=== PATIENT | male | born 1940 | race Caucasian/White ===

== ENCOUNTER 2017-09-05 19:26 | Emergency (ER) | payer OTHER ==
[~2017-09-05] VITALS: Ht 165.1 cm; Wt 74.0 kg
[~2017-09-05 19:26] MED LIST: ASPI81TA3 PO; BACTDS PO; BENA20TA48 PO; CEPH-443 PO; COLC0.6T6 PO; FAMO-95 PO; HYDR-3498 PO; IBUP400T22 PO; LANT3I SC; METF1000 PO; NOVO3I SC
[2017-09-06 01:31] VITALS: Ht 165.1 cm; Wt 74.0 kg
--- NOTE | 2017-09-07 12:56 | ERD ---
ER Documentation Chief Complaint Chief Complaint sent by PMD for elevated K, no CP or SOB HPI A recorder helper seismograph was used. This is a 77-year-old male with a history of diabetes, no renal issues who presents because his clinic called him about an elevated potassium level. The patient has no complaints. No fevers, chills, chest pain, vomiting. Normal urine output noted. No history of elevated potassium or renal issues. He was not told the actual potassium level. ROS All systems reviewed and are negative except as per history of present illness. Medications Home Meds Active Scripts Ibuprofen* (Motrin*) 400 Mg Tab, 400 MG PO Q8 for PAIN AND/OR INFLAMMATION, #30 TAB Prov:PRIYA WITT MD 04/11/16 Sulfamethoxazole-Trimethoprim* (Bactrim* DS) 800-160 Mg Tab, 1 TAB PO BID for 5 Days, TAB Prov:PRIYA WITT MD 04/11/16 Cephalexin* (Keflex*) 500 Mg Capsule, 500 MG PO QID for 5 Days, CAP Prov:PRIYA WITT MD 04/11/16 Colchicine* (Colcrys*) 0.6 Mg Tab, 0.6 MG PO BID for 30 Days, TAB Prov:STEFFANY JOINER MD 09/18/15 Hydrocodone Bit/Acetaminophen (Anexsia 5-325 Mg Tablet) 1 Tab Tab, 1 TAB PO Q6H Y for pain for 10 Days Prov:STEFFANY JOINER MD 09/18/15 Insulin Aspart* (Novolog Insulin Pen*) 100 Unit/Ml Soln, 0 UNIT SC AC MEALS AND BEDTIME for 30 Days, BOTTLE Prov:STEFFANY JOINER MD 09/18/15 Insulin Glargine* (Lantus*) 100 Unit/Ml Soln, 40 UNIT SC DAILY for 30 Days, BOTTLE Prov:STEFFANY JOINER MD 09/18/15 Famotidine* (Pepcid* AC) 20 Mg Tab, 20 MG PO DAILY for 30 Days, TAB Prov:STEFFANY JOINER MD 09/18/15 Reported Medications Metformin Hcl* (Metformin Hcl*) 1,000 Mg Tablet, 1000 MG PO DAILY, TAB 08/31/14 Aspirin* (Aspirin* Chew) 81 Mg Tab.chew, 81 MG PO DAILY, TAB.CHEW 08/31/14 Benazepril Hcl* (Benazepril Hcl*) 20 Mg Tablet, 20 MG PO DAILY, TAB 08/31/14 Allergies Allergies: Coded Allergies: No Known Allergy (Unverified , 04/11/16) PMhx/Soc History of Surgery: Yes (craniotomoy) Anesthesia Reaction: No Hx Neurological Disorder: No Hx Respiratory Disorders: No Hx Cardiac Disorders: Yes (htn, HL) Hx Psychiatric Problems: No Hx Miscellaneous Medical Probl: Yes (HTN, DM, chronic venous stasis ulcers, ) Hx Alcohol Use: No Hx Substance Use: No Hx Tobacco Use: No FmHx Family History: diabetes Physical Exam Vitals Vital Signs Date Time Temp Pulse Resp B/P Pulse Ox O2 Delivery O2 Flow Rate FiO2 09/06/17 01:31 98.4 70 17 150/70 98 Physical Exam General: Well developed, well nourished, no acute distress Head: Normocephalic, atraumatic Eyes: Pupils equally reactive, EOM intact ENT: Moist mucous membranes Neck: Supple, no lymphadenopathy Respiratory: Lungs clear bilaterally, no distress Cardiovascular: RRR, no murmurs, rubs, or gallops Abdominal: Soft, non-tender, non-distended, no peritoneal signs : Deferred MSK: No edema, no unilateral swelling, 5/5 strength Neurologic: Alert and oriented, moving all extremities, normal speech, no focal weakness, no cerebellar signs Skin: No rash Psych: Normal mood Result Diagram: 09/05/17192909/05/171929 Results 24 hrs Laboratory Tests Test 09/05/17 19:30 White Blood Count 8.710^3/ul Red Blood Count 4.8110^6/ul Hemoglobin 13.9g/dl Hematocrit 41.2% Mean Corpuscular Volume 85.7fl Mean Corpuscular Hemoglobin 28.9pg Mean Corpuscular Hemoglobin Concent 33.7g/dl Red Cell Distribution Width 12.5% Platelet Count 57345^3/UL Mean Platelet Volume 10.4fl Neutrophils % 60.3% Lymphocytes % 24.1% Monocytes % 9.8% Eosinophils % 3.9% Basophils % 1.6% Nucleated Red Blood Cells % 0.0/100WBC Neutrophils # 5.310^3/ul Lymphocytes # 2.110^3/ul Monocytes # 0.910^3/ul Eosinophils # 0.310^3/ul Basophils # 0.110^3/ul Nucleated Red Blood Cells # 0.010^3/ul Sodium Level 140mmol/L Potassium Level 4.3mmol/L Chloride Level 99mmol/L Carbon Dioxide Level 28mmol/L Anion Gap 17 Blood Urea Nitrogen 25mg/dl Creatinine 1.10mg/dl Glucose Level 217mg/dl Calcium Level 9.3mg/dl Total Bilirubin 0.3mg/dl Direct Bilirubin 0.00mg/dl Indirect Bilirubin 0.3mg/dl Aspartate Amino Transf (AST/SGOT) 44IU/L Alanine Aminotransferase (ALT/SGPT) 51IU/L Alkaline Phosphatase 126IU/L Total Protein 7.6g/dl Albumin 4.6g/dl Globulin 3.00g/dl Albumin/Globulin Ratio 1.53 Procedures/MDM EKG, MONITORS, & DIAGNOSTIC IMAGING: EKG: I reviewed and interpreted a 12-lead EKG. Rhythm: Normal sinus rhythm Ectopy: None Intervals: No abnormalities ST segments: No elevations or depressions T waves: No contiguous inversions LAB INTERPRETATION: Potassium of 4.3, creatinine of 1.1. MEDICAL DECISION MAKING: The patient presents for evaluation of hyperkalemia. The patient otherwise has no complaints, no history of renal disease. I have a strong concern for hemolysis and lab error as the etiology of hyperkalemia. He has no signs or symptoms concerning for hyperkalemia, his EKG shows no evidence of hyperkalemia. Again, this is most likely a lab error. However, the patient will benefit from EKG, CBC and chemistry. Hospitalization will be necessary if the patient truly has hyperkalemia. ER COURSE: The patient's potassium is in normal limits. The patient's potassium at the physician's office was likely secondary to lab hemolysis. No indication for admission or hospitalization. The patient was informed of outpatient follow-up with his primary care physician. I kept the patient and/or family informed of laboratory and diagnostic imaging results throughout the emergency room course. DISPOSITION PLAN: We discussed follow up with the patient's primary care doctor within 24 to 48 hours as needed. We also discussed return to the emergency room for worsening symptoms or worsening condition. Outpatient referral: [None required] Departure Diagnosis: Primary Impression: Encounter for laboratory test Condition: JAE Sen MD Sep 07, 2017 12:56
== END 2017-09-05 23:40 | disposition home or self-care (01) ==
LOC: E/R 19:26
DX: E87.5 Hyperkalemia (principal); I10 Essential (primary) hypertension; E11.9 Type 2 diabetes mellitus without complications; Z79.4 Long term (current) use of insulin; Z79.82 Long term (current) use of aspirin
CPT/HCPCS: 80053; 80076; 85025